=== PATIENT | male | born 1955 | race Caucasian/White ===

== ENCOUNTER → 2016-03-15 | Outpatient (CLI) | payer OTHER ==
[~2016-03-15] MED LIST: /PANT40TA; ATEN100T; ATEN50TA2; DILA100C; NICO21DI4
[2016-03-15 11:58] LABS: BASO % 0.7 % (0.0-1.0); EOS % 0.5 % (0.0-3.0); LARGE UNSTAINED CELL # 0.2 K/mm3 (0.0-0.4); LARGE UNSTAINED CELL % 2.1 % (0.0-4.0); LYMPH # 2.2 K/mm3 (1.5-4.5); LYMPH % 28.9 % (24.0-44.0); MEAN CORPUSCULAR HEMOGLOBIN 31.5 pg (27.0-33.0); MEAN CORPUSCULAR HGB CONC 34.3 g/dl (32.0-36.5); MEAN CORPUSCULAR VOLUME 91.8 fl (80.0-96.0); MONO # 0.6 K/mm3 (0.0-0.8); MONO % 7.5 % (0.0-5.0); NEUTROPHILS # 4.6 K/mm3 (1.8-7.7); NEUTROPHILS % 60.3 % (36.0-66.0); PLATELET COUNT, AUTOMATED 178 k/mm3 (150-450); RED CELL DISTRIBUTION WIDTH 13.3 % (11.5-14.5); WHITE BLOOD COUNT 7.6 K/mm3 (4.0-10.0)
[2016-03-15 12:13] LABS: INR 1.03
[2016-03-15 12:35] LABS: ALBUMIN 4.1 GM/DL (3.2-5.2); ALBUMIN/GLOBULIN RATIO 1.14 (1.00-1.93); ALKALINE PHOSPHATASE 87 U/L (45-117); ALT/SGPT 24 U/L (12-78); ANION GAP 8 MEQ/L (8-16); AST/SGOT 19 U/L (15-37); BILIRUBIN,TOTAL 0.3 MG/DL (0.2-1.0); BLOOD UREA NITROGEN 15 MG/DL (7-18); CALCIUM LEVEL 9.4 MG/DL (8.5-10.1); CARBON DIOXIDE LEVEL 29 MEQ/L (21-32); CHLORIDE LEVEL 103 MEQ/L (98-107); CREATININE FOR GFR 0.81 MG/DL (0.70-1.30); FREE T4 1.06 NG/DL (0.76-1.46); GLOMERULAR FILTRATION RATE > 60.0 (>56); GLUCOSE, FASTING 96 MG/DL (70-105); POTASSIUM SERUM 4.3 MEQ/L (3.5-5.1); SODIUM LEVEL 140 MEQ/L (136-145); TOTAL PROTEIN 7.7 GM/DL (6.4-8.2)
[2016-03-17 00:06] LABS: HEPATITIS C QUANTITATION HCV Not Detected IU/mL (.)
== END | disposition home or self-care (01) ==
LOC: M RAD 09:46
PROVIDERS: ATTEND Internal Medicine Infectious Disease
DX: B18.2 Chronic viral hepatitis C (principal); K70.30 Alcoholic cirrhosis of liver without ascites; R63.4 Abnormal weight loss

== ENCOUNTER → 2016-03-29 | Outpatient (CLI) | payer OTHER ==
[~2016-03-29] MED LIST changes: +GASTROGRAFIN SOLUTION 30ML (Q9963) As Ordered ONE; +ISOVUE-370 76% 100ML VIAL (Q9967) As Ordered ONE
--- NOTE | 2016-03-29 13:51 | REP ---
CT ABDOMEN AND PELVIS: Initially performed without iv contrast, subsequently following IV and oral contrast and then with 3 minute delayed imaging of the abdomen. TECHNIQUE: After drinking two cups of oral contrast each containing 10 mL Gastrografin in 290 mL water, CT of the abdomen was performed. Subsequently following IV contrast administration with 100 mL Isovue 370 mg/mL, 3 mm spiral axial sections obtained through the abdomen and pelvis in the portal venous phase. 3 mm delayed images were subsequently performed through the abdomen. FINDINGS: The lung bases are clear bilaterally. There is minimal diffuse fatty infiltration of the liver yet no focal lesion. The liver and spleen are of normal size. The pancreas and gallbladder are normal. The right adrenal is thickened with density 55 Hounsfield units, therefore, indeterminate. The left adrenal is thickened with low density on unenhanced CT portion of the study consistent with adenoma. The stomach is normal. The small bowel appears without obstruction. There is some low density small bowel loops containing fluid and/or ingested material within the central abdomen, which later filled in with small amount of contrast. There is no small bowel obstruction. The appendix is without inflammation. Atherosclerotic changes are noted in the tortuous abdominal aorta which is without aneurysm. There are moderate atherosclerotic changes in the iliac vessels as well. The bladder is normal. The prostate is mild to moderately enlarged with extrinsic impression upon the inferior bladder. Segmental area of mural thickening seen within the proximal to mid sigmoid compatible with nonspecific colitis. There is no free air or ascites. IMPRESSION: 1. Long segment of moderate mural thickening involving proximal to mid sigmoid compatible with colitis. Clinical followup is recommended. 2. Mild to moderate prostatic hypertrophy with extrinsic impression upon the inferior bladder. 3. Mild diffuse fatty infiltration of the liver. 4. No evidence of ascites or portal venous collaterals. Unreviewed MTDD
== END | disposition home or self-care (01) ==
LOC: M RAD 09:01
PROVIDERS: ATTEND Internal Medicine Infectious Disease
DX: B18.2 Chronic viral hepatitis C (principal); K76.0 Fatty (change of) liver, not elsewhere classified; N40.0 Benign prostatic hyperplasia without lower urinary tract symptoms

== ENCOUNTER → 2016-04-11 | Outpatient (CLI) | payer OTHER ==
[~2016-04-11] MED LIST changes: -GASTROGRAFIN SOLUTION 30ML (Q9963) As Ordered ONE; -ISOVUE-370 76% 100ML VIAL (Q9967) As Ordered ONE
--- NOTE | 2016-04-12 02:37 | REP ---
Clinical: COPD . Comparison: 06/28/2015 . Technique: PA and lateral. Findings: The mediastinum and cardiac silhouette are normal. The lung muro are clear/stable and without acute consolidation, effusion, or pneumothorax. The skeletal structures are intact and normal. Impression: 1. No acute cardiopulmonary process. Signed by Vineet Benavidez MD 04/12/2016 02:28 A
== END | disposition home or self-care (01) ==
LOC: M SMT 14:16
PROVIDERS: ATTEND Nurse Practitioner Adult Health
DX: J44.9 Chronic obstructive pulmonary disease, unspecified (principal)

== ENCOUNTER → 2016-04-13 | Outpatient (REF) | payer OTHER | END | disposition home or self-care (01) | LOC: M SFHCPLAZ 10:40 | PROVIDERS: ATTEND Internal Medicine Infectious Disease | DX: N40.0 Benign prostatic hyperplasia without lower urinary tract symptoms (principal) ==

== ENCOUNTER → 2016-04-19 | Outpatient (REF) | payer OTHER ==
[2016-04-19 12:38] LABS: ALBUMIN 3.9 GM/DL (3.2-5.2); ALBUMIN/GLOBULIN RATIO 1.03 (1.00-1.93); ALKALINE PHOSPHATASE 78 U/L (45-117); ALT/SGPT 19 U/L (12-78); AST/SGOT 22 U/L (15-37); BILIRUBIN,DIRECT < 0.1 MG/DL (0.0-0.2); BILIRUBIN,TOTAL 0.3 MG/DL (0.2-1.0); TOTAL PROTEIN 7.7 GM/DL (6.4-8.2)
[2016-04-23 14:17] LABS: HEPATITIS C QUANTITATION HCV Not Detected IU/mL (.)
== END | disposition home or self-care (01) ==
LOC: M SFHCPLAZ 10:17
PROVIDERS: ATTEND Internal Medicine Infectious Disease
DX: B18.2 Chronic viral hepatitis C (principal)

== ENCOUNTER → 2016-05-09 | Outpatient (CLI) | payer OTHER ==
[~2016-05-09] MED LIST changes: +METHACHOLINE KIT (J7674) INH ONE
== END ==
LOC: M CARPUL 14:56
PROVIDERS: ATTEND Nurse Practitioner Adult Health
DX: J44.9 Chronic obstructive pulmonary disease, unspecified (principal)

== ENCOUNTER → 2016-05-17 | Outpatient (CLI) | payer OTHER ==
[~2016-05-17] MED LIST changes: -METHACHOLINE KIT (J7674) INH ONE
--- NOTE | 2016-05-17 13:14 | REP ---
LEFT HIP, 2 VIEWS: HISTORY: Sciatica. There is no acute fracture or dislocation. The joint space is normal in appearance. IMPRESSION: There is no acute fracture or dislocation. Signed by Flex Serraon MD 05/17/2016 02:09 P
== END ==
LOC: M SMT 11:54
PROVIDERS: ATTEND Nurse Practitioner Adult Health
DX: M54.32 Sciatica, left side (principal)

== ENCOUNTER → 2016-09-10 | Outpatient (CLI) | payer OTHER ==
[2016-09-10 15:16] LABS: BLOOD UREA NITROGEN 16 MG/DL (7-18); CREATININE FOR GFR 0.81 MG/DL (0.70-1.30); GLOMERULAR FILTRATION RATE > 60.0 (>49)
== END ==
LOC: M LAB 13:58
PROVIDERS: ATTEND Surgery
DX: I70.223 Atherosclerosis of native arteries of extremities with rest pain, bilateral legs (principal)

== ENCOUNTER → 2016-09-18 | Outpatient (CLI) | payer OTHER ==
[~2016-09-18] MED LIST changes: +ISOVUE-370 76% 100ML VIAL (Q9967) As Ordered ONE
--- NOTE | 2016-09-21 09:23 | REP ---
Clinical: Atherosclerotic disease. Technique: Axial contrast enhanced images from the lung bases through the lower extremities using 100 ml Isovue 370 intravenous contrast material with imaging in the arterial phase of enhancement. Coronal and sagittal re-formations obtained along with MIP and MPR imaging of the bilateral lower extremities. Findings: Moderate atherosclerotic changes of of the aorta and branch vessels noted to the level of the bifurcation where more advanced atherosclerotic changes are then appreciated involving the bilateral common iliac arteries to include the bilateral internal and external iliac arteries. Normal appearance to the bilateral common femoral arteries is then appreciated reverting to mild/moderate atherosclerotic changes through the bilateral femoral arteries including focally dense circumferential calcifications involving the left distal femoral artery through mid popliteal artery without complete occlusion. Moderate atherosclerotic changes are then appreciated beyond the bilateral popliteal arteries with satisfactory arterial enhancement to the distal lower extremities demonstrating three-vessel runoff to the left proximal ankle and two-vessel runoff beyond the level of the right popliteal artery. Lung bases are clear. Visualized heart and pericardium are normal. Liver, spleen, pancreas, gallbladder, bilateral adrenal glands and kidneys are normal in the arterial phase of enhancement. The enteric system is without obstruction or acute inflammatory process and a normal terminal ileum/appendix are identified in the right lower quadrant. Pelvis demonstrates mass effect on the base of the bladder secondary to enlarged prostate gland measuring four point 5 cm maximal AP diameter. Moderately prominent lymph nodes are identified at the bilateral inguinal canals along with suspected granulation tissue extending from the common femoral arteries through the subcutaneous tissues suggesting prior vascular surgery. No ascites. No free air. No intraperitoneal or retroperitoneal adenopathy. Musculoskeletal structures demonstrate chronic scoliosis and age-related degenerative changes through the visualized thoracolumbar spine. Impression: 1. Overall moderate atherosclerotic changes throughout the abdominal aorta and arterial vasculature culminating in two-vessel runoff to the right ankle and three-vessel runoff to the left ankle. 2. No significant acute abdominopelvic pathology otherwise appreciated. Signed by Vineet Benavidez MD 09/21/2016 09:15 A
== END ==
LOC: M RAD 08:30
PROVIDERS: ATTEND Surgery
DX: I70.233 Atherosclerosis of native arteries of right leg with ulceration of ankle (principal); I70.0 Atherosclerosis of aorta

== ENCOUNTER → 2016-11-14 | Outpatient (REF) | payer OTHER ==
[~2016-11-14] MED LIST changes: -ISOVUE-370 76% 100ML VIAL (Q9967) As Ordered ONE
[2016-11-14 12:51] LABS: ALBUMIN 3.8 GM/DL (3.2-5.2); ALBUMIN/GLOBULIN RATIO 1.03 (1.00-1.93); ALKALINE PHOSPHATASE 100 U/L (45-117); ALT/SGPT 17 U/L (12-78); ANION GAP 4 MEQ/L (8-16); AST/SGOT 16 U/L (15-37); BILIRUBIN,TOTAL 0.3 MG/DL (0.2-1.0); BLOOD UREA NITROGEN 18 MG/DL (7-18); CALCIUM LEVEL 9.5 MG/DL (8.8-10.2); CARBON DIOXIDE LEVEL 32 MEQ/L (21-32); CHLORIDE LEVEL 105 MEQ/L (98-107); CHOLESTEROL LEVEL 156 MG/DL (<200); CREATININE FOR GFR 0.73 MG/DL (0.70-1.30); GLOMERULAR FILTRATION RATE > 60.0 (>49); GLUCOSE, FASTING 105 MG/DL (80-110); POTASSIUM SERUM 4.6 MEQ/L (3.5-5.1); SODIUM LEVEL 141 MEQ/L (136-145); TOTAL PROTEIN 7.5 GM/DL (6.4-8.2); TRIGLYCERIDES LEVEL 125 MG/DL (<150)
[2016-11-14 12:59] LABS: MEAN CORPUSCULAR HEMOGLOBIN 32.3 pg (27.0-33.0); MEAN CORPUSCULAR VOLUME 89.9 fl (80.0-96.0); RED CELL DISTRIBUTION WIDTH 13.3 % (11.5-14.5)
== END ==
LOC: M SFHCPLAZ 09:00
PROVIDERS: ATTEND Nurse Practitioner Adult Health
DX: B18.2 Chronic viral hepatitis C (principal)

== ENCOUNTER → 2017-02-25 | Outpatient (REF) | payer OTHER ==
[2017-02-25 11:51] LABS: MEAN CORPUSCULAR HEMOGLOBIN 30.1 pg (27.0-33.0); MEAN CORPUSCULAR VOLUME 88.3 fl (80.0-96.0); PLATELET COUNT, AUTOMATED 164 10^3/uL (150-450); RED CELL DISTRIBUTION WIDTH 13.2 % (11.5-14.5); WHITE BLOOD COUNT 9.8 10^3/uL (4.0-10.0)
[2017-02-25 12:53] LABS: ALBUMIN 3.8 GM/DL (3.2-5.2); ALBUMIN/GLOBULIN RATIO 0.97 (1.00-1.93); ALKALINE PHOSPHATASE 92 U/L (45-117); ALT/SGPT 14 U/L (12-78); ANION GAP 6 MEQ/L (8-16); AST/SGOT 20 U/L (7-37); BILIRUBIN,DIRECT < 0.1 MG/DL (0.0-0.2); BILIRUBIN,TOTAL 0.3 MG/DL (0.2-1.0); BLOOD UREA NITROGEN 18 MG/DL (7-18); CALCIUM LEVEL 9.4 MG/DL (8.8-10.2); CARBON DIOXIDE LEVEL 29 MEQ/L (21-32); CHLORIDE LEVEL 105 MEQ/L (98-107); CHOLESTEROL LEVEL 179 MG/DL (<200); CREATININE FOR GFR 0.73 MG/DL (0.70-1.30); GLOMERULAR FILTRATION RATE > 60.0 (>49); GLUCOSE, FASTING 97 MG/DL (80-110); POTASSIUM SERUM 4.5 MEQ/L (3.5-5.1); SODIUM LEVEL 140 MEQ/L (136-145); TOTAL PROTEIN 7.7 GM/DL (6.4-8.2); TRIGLYCERIDES LEVEL 170 MG/DL (<150)
[2017-02-27 10:13] LABS: HEPATITIS C QUANTITATION HCV Not Detected IU/mL (.)
== END ==
LOC: M SFHCPLAZ 08:57
PROVIDERS: ATTEND Nurse Practitioner Adult Health
DX: K70.30 Alcoholic cirrhosis of liver without ascites (principal); B18.2 Chronic viral hepatitis C; I70.209 Unspecified atherosclerosis of native arteries of extremities, unspecified extremity; Z00.00 Encounter for general adult medical examination without abnormal findings

== ENCOUNTER → 2017-08-12 | Outpatient (REF) | payer MEDICARE, MEDICAID ==
[2017-08-12 16:31] LABS: HEMOGLOBIN 15.7 g/dl (13.5-17.5); MEAN CORPUSCULAR HEMOGLOBIN 30.2 pg (27.0-33.0); MEAN CORPUSCULAR HGB CONC 34.9 g/dl (32.0-36.5); MEAN CORPUSCULAR VOLUME 86.5 fl (80.0-96.0); PLATELET COUNT, AUTOMATED 182 10^3/uL (150-450); RED CELL DISTRIBUTION WIDTH 13.2 % (11.5-14.5); WHITE BLOOD COUNT 6.6 10^3/uL (4.0-10.0)
== END ==
LOC: M SFHCPLAZ 14:00
DX: K64.9 Unspecified hemorrhoids (principal)
CPT/HCPCS: 85027

== ENCOUNTER → 2017-10-15 | Outpatient (REF) | payer MEDICARE, MEDICAID ==
[2017-10-15 12:41] LABS: ALBUMIN 3.7 GM/DL (3.2-5.2); ALKALINE PHOSPHATASE 90 U/L (45-117); ALT/SGPT 18 U/L (12-78); ANION GAP 7 MEQ/L (8-16); AST/SGOT 18 U/L (7-37); BILIRUBIN,TOTAL 0.3 MG/DL (0.2-1.0); BLOOD UREA NITROGEN 14 MG/DL (7-18); CALCIUM LEVEL 9.1 MG/DL (8.8-10.2); CARBON DIOXIDE LEVEL 29 MEQ/L (21-32); CHLORIDE LEVEL 103 MEQ/L (98-107); CHOLESTEROL LEVEL 168 MG/DL (<200); CHOLESTEROL RISK RATIO 4.097 (<5); CREATININE FOR GFR 0.67 MG/DL (0.70-1.30); GLOMERULAR FILTRATION RATE > 60.0 (>49); GLUCOSE, FASTING 97 MG/DL (70-100); HDL CHOLESTEROL 41 MG/DL (>40); LDL CHOLESTEROL 102.4 MG/DL (<100); NON-HDL-C 127 MG/DL; POTASSIUM SERUM 4.6 MEQ/L (3.5-5.1); SODIUM LEVEL 139 MEQ/L (136-145); TOTAL PROTEIN 7.8 GM/DL (6.4-8.2); TRIGLYCERIDES LEVEL 123 MG/DL (<150)
[2017-10-15 12:46] LABS: ALPHA FETOPROTEIN TUMOR QUANT 1.3 NG/ML (<8.1)
== END ==
LOC: M SFHCPLAZ 11:10
DX: I70.209 Unspecified atherosclerosis of native arteries of extremities, unspecified extremity (principal); E78.2 Mixed hyperlipidemia; K70.30 Alcoholic cirrhosis of liver without ascites; F17.210 Nicotine dependence, cigarettes, uncomplicated
CPT/HCPCS: 80053

== ENCOUNTER → 2017-12-25 | Outpatient (CLI) | payer MEDICARE, MEDICAID | LOC: M RAD 12:15 | DX: K40.90 Unilateral inguinal hernia, without obstruction or gangrene, not specified as recurrent (principal) | CPT/HCPCS: 76857 ==

== ENCOUNTER 2018-02-14 05:20 | Emergency (ER) | payer MEDICARE, MEDICAID ==
[2018-02-14] MEDS: MORPHINE 10 MG/ML 1ML VIAL (J2270) IM (06:33)
[2018-02-14 07:27] LABS: APPEARANCE, URINE CLEAR (CLEAR); BACTERIA, URINE AUTO NEGATIVE (NEGATIVE); BILIRUBIN, URINE AUTO NEGATIVE (NEGATIVE); BLOOD, URINE BLOOD NEGATIVE (NEGATIVE); COLOR, URINE YELLOW (YELLOW); GLUCOSE, URINE (UA) AUTO NEGATIVE (NEGATIVE); KETONE, URINE AUTO 1+ mg/dL (NEGATIVE); LEUKOCYTE ESTERASE, URINE AUTO NEGATIVE (NEGATIVE); MUCUS, URINE SMALL (NEGATIVE); NITRITE, URINE AUTO NEGATIVE (NEGATIVE); PROTEIN, URINE AUTO NEGATIVE (NEGATIVE); RBC, URINE AUTO 2 /HPF (0-3); SPECIFIC GRAVITY URINE AUTO 1.023 (1.002-1.035); SQUAMOUS EPITHELIAL CELL UR AU 0 /HPF (0-6); WBC, URINE AUTO 1 /HPF (0-3)
[2018-02-14] MEDS: PERCOCET 5MG/325MG TAB PO (07:39)
== END 2018-02-14 08:46 | disposition home or self-care (01) ==
LOC: M ED 05:20
DX: S22.31XA Fracture of one rib, right side, initial encounter for closed fracture (principal); Y92.009 Unspecified place in unspecified non-institutional (private) residence as the place of occurrence of the external cause; W10.8XXA Fall (on) (from) other stairs and steps, initial encounter; F17.210 Nicotine dependence, cigarettes, uncomplicated
CPT/HCPCS: J2270

== ENCOUNTER 2018-02-16 13:49 | Emergency (ER) | payer MEDICARE, MEDICAID ==
[2018-02-16] MEDS ORDERED: HYDROMORPHONE HCL 0.5 MG/ 0.5 ML SYRINGE (J1170 PER 1) IM (15:45)
[2018-02-16] MEDS: HYDROMORPHONE HCL 0.5 MG/ 0.5 ML SYRINGE (J1170 PER 1) IV ×2 (16:01→16:47)
== END 2018-02-16 17:48 | disposition home or self-care (01) ==
LOC: M ED 13:49
DX: I73.9 Peripheral vascular disease, unspecified (principal); S22.41XA Multiple fractures of ribs, right side, initial encounter for closed fracture; X58.XXXA Exposure to other specified factors, initial encounter; Y92.89 Other specified places as the place of occurrence of the external cause; Z88.0 Allergy status to penicillin; F17.210 Nicotine dependence, cigarettes, uncomplicated
CPT/HCPCS: J1170

== ENCOUNTER → 2018-04-15 | Outpatient (CLI) | payer MEDICARE, MEDICAID ==
[~2018-04-15] MED LIST changes: +ADV250INH; +ALPR1TAB3; +BENZ200C70 PO; +CLOP75TA2; +COLA100C5 PO; +PERC5TAB12 PO; +VENTAER
--- NOTE | 2018-04-16 08:41 | ECGEPIP ---
Stationary ECG Study [facility] Test Date: 2018-04-15 Pat Name: KAYLA AKHTAR Department: Room: - Gender: M Body Artist: [facility] : 1955 Requested By: LEELEE Vann Order Number: [id number] Reading MD: Eda Blankenship Measurements Intervals [place] Rate: 63 P: 62 [place]: 144 QRS: 74 QRSD: 95 T: 56 QT: 376 QTc: 385 Interpretive Statements SINUS RHYTHM N CHANGE SINCE 06/28/15 Electronically Signed On 04-16-2018 8:41:37 EST by Eda Blankenship
== END ==
LOC: M EKG 16:27
PROVIDERS: ATTEND Anesthesiology
DX: Z01.818 Encounter for other preprocedural examination (principal); Z86.718 Personal history of other venous thrombosis and embolism; J44.9 Chronic obstructive pulmonary disease, unspecified; K21.9 Gastro-esophageal reflux disease without esophagitis; Z95.820 Peripheral vascular angioplasty status with implants and grafts

== ENCOUNTER 2018-04-21 12:48 | Day surgery (SDC) | payer MEDICARE, MEDICAID ==
[~2018-04-21] VITALS: Ht 167.6 cm; Wt 63.5 kg
[~2018-04-21 12:48] MED LIST changes: +LIDOCAINE 1% MDV 20ML VIAL SQ PRN; +LR 1,000 ML IV ONE; +LevoFLOXacin IV 500 MG in APPROPRIATE DILUENT 1 EA IV ONE
[2018-04-21] MEDS ORDERED: LIDOCAINE 1% SDV INJ 30 ML VIAL As Ordered ONE (15:10)
[2018-04-21] MEDS ORDERED: BUPIVACAINE HCL 0.25% 30 ML VIAL As Ordered ONE (15:10)
[2018-04-21] MEDS ORDERED: PROPOFOL 200 MG/20 ML VIAL As Ordered ONE (16:15)
[2018-04-21] MEDS ORDERED: fentaNYL 250 MCG/5 ML INJECTION (J3010) As Ordered ONE (16:15)
[2018-04-21] MEDS ORDERED: ROCURONIUM BROMIDE 50 MG/5 ML VIAL As Ordered ONE ×2 (16:15→16:24)
[2018-04-21] MEDS ORDERED: LIDOCAINE 2% INJ 100 MG/5 ML SDV (FOR ANES.) As Ordered ONE (16:15)
[2018-04-21] MEDS ORDERED: MIDAZOLAM INJ 2 MG/2 ML VIAL (J2250) As Ordered ONE (16:15)
[2018-04-21] MEDS ORDERED: NEOSTIGMINE 10 MG/10 ML VIAL (J2710) As Ordered ONE (16:16)
[2018-04-21] MEDS ORDERED: ONDANSETRON 4MG/2ML VIAL (J2405) As Ordered ONE (16:16)
[2018-04-21] MEDS ORDERED: dexameTHASONE 4 MG/ML 1ML VIAL (J1100) As Ordered ONE (16:16)
[2018-04-21] MEDS ORDERED: GLYCOPYRROLATE INJ 0.2 MG/ML 2 ML VIAL As Ordered ONE (16:16)
[2018-04-21] MEDS ORDERED: METOCLOPRAMIDE INJ 10MG/2ML VIAL (J2765) As Ordered ONE (16:16)
[2018-04-21] MEDS ORDERED: DESFLURANE 240 ML INHALANT As Ordered ONE (17:38)
[2018-04-21] MEDS ORDERED: fentaNYL 100 MCG/2 ML INJECTION (J3010) As Ordered ONE (17:52)
[2018-04-21] MEDS: HYDROMORPHONE HCL 0.5 MG/ 0.5 ML SYRINGE (J1170 PER 1) IV PRN ×2 (18:00→18:15)
[2018-04-21] MEDS ORDERED: HYDROMORPHONE HCL 0.5 MG/ 0.5 ML SYRINGE (J1170 PER 1) As Ordered ONE (18:02)
[2018-04-21] MEDS ORDERED: fentaNYL 100 MCG/2 ML INJECTION (J3010) IV PRN (18:15)
[2018-04-21] MEDS ORDERED: HYDROMORPHONE HCL 0.5 MG/ 0.5 ML SYRINGE (J1170 PER 1) IV PRN (18:15)
[2018-04-21] MEDS ORDERED: LR 1,000 ML IV SCH (18:15)
[2018-04-21] MEDS ORDERED: ONDANSETRON 4MG/2ML VIAL (J2405) IV PRN ×2 (18:15→18:30)
[2018-04-21] MEDS ORDERED: KETOROLAC 30 MG/ML VIAL (J1885) As Ordered ONE (18:26)
[2018-04-21] MEDS ORDERED: NORCO, ANEXSIA 5/325MG TABLET (HYDROcodone/ACETAMINOPHEN) PO PRN ×2 (18:30)
[2018-04-21] MEDS ORDERED: KETOROLAC 30 MG/ML VIAL (J1885) IV PRN (18:30)
[2018-04-21 19:20] VITALS: BP 154/90
--- NOTE | 2018-04-22 04:22 | ROOPDOC ---
[facility] Report Of Operation Report of Operation DATE OF PROCEDURE: 04/22/18 PREPROCEDURE DIAGNOSES: Bilateral inguinal hernia. POSTPROCEDURE DIAGNOSES: Bilateral indirect inguinal hernia. PROCEDURE: Robotic-assisted laparoscopic repair of bilateral inguinal hernia with mesh ((STANLEY). SURGEON: Sánchez Martinez MD DUST MIXER: Colleen Lundberg DO (PGY-1) ANESTHESIA: General anesthesia. ESTIMATED BLOOD LOSS: Approximately 10 mL. COMPLICATIONS: None. REMARKS: Small defects on both left and right inguinal hernia. Significant scarring from previous vascular groin surgeries in both sides, most prominent over the left side. Small cord lipoma removed in the left side. Slightly larger but relatively small cord lipoma removed from the right side.. . DESCRIPTION OF PROCEDURE: Patient received 500 mg of Levaquin IV preoperatively for wound prophylaxis. Patient was brought to the operating room, placed supine on the operating table. Compression boots placed in both lower extremities for DVT prophylaxis. After adequate general anesthesia started, he was placed on a lithotomy position. A silva catheter placed to decompress his urinary bladder without difficulty. His abdomen and groin/pelvic area then prepped and draped in the usual sterile fashion. We performed a surgical timeout using relevant patient identifier, procedure information prior to start of our surgery. Entry to the abdomen done through a small incision above the umbilical skin cleft. A Veress needle is inserted intrabdominally in a controlled fashion. CO2 insufflation started to pressure 15 mmHg. Using the same incision a 5 mm Visiport was then placed under direct vision of laparoscope. The insertion site was inspected for injury and none was found. Patient was then positioned on a Trendelenburg position with the symptomatic (left) side tilted upwards for adequate view of the hernia defect. Two working ports are placed to the laterally on the abdominal wall to the right and left of the umbilicus . The da Estrella robot to our is then positioned in between the patient's legs and the trochars docked onto the robot. I then unscrubbed and took control of the camera and the laparoscopic instruments at the surgeon's console. A Cadiere forceps with bipolar cautery on arm 2 and A fredrick-cut laparoscopic scissor with unipolar cautery in arm 1 was used. Operative Findings: The presence of bilateral inguinal hernia on both sides were confirmed. The opening were both small with no visible intraabdominal organs protruding through the defect. The left side defect appears more promient. A portion of the sigmoid colon is partially adhered to the lower part of the hernia opening but not through it. This was easily lysed away from the working area with the scissors. The peritoneum was opened up about 3 cm above the superior edge of the peritoneal defect of the inguinal hernia starting at the medial umbilical ligament going in an arc-like fashion laterally towards the level of the anterior superior iliac spine. This was then dissected mostly bluntly away from the abdominal wall. He has had previous vascular surgeries on both groin area via bilateral groin incsions and there is scarring of the tissues consistent with this. On approaching the inguinal hernia defect the hernia sac was pulled back into the preperitoneal space and carefully dissected off the testicular vessels and vas deferens. The hernia sac extends inside the inguinal canal and reduced back into the abdomen.. Both these structures were promptly identified and from the hernia sac. A small cord lipoma was found and dissected free from the rest of the structures. After freeing up the hernia sac we sana nued dissecting it off inferiorly to from the vas deferens and testicular vessels. The preperitoneal space was dissected medially to expose the pubic tubercle up towards the symphysis pubis. The remaining areolar fibers were bluntly dissected away from the abdominal wall to create space for the mesh. After fully dissecting the preperitoneal space, we checked for adequate hemostasis. I chose a medium sized (10x 6 cm) 3D-Max light weighted polypropylene mesh. This was folded with the center of the mesh marked for positioning. This was then delivered intra-abdominally through one of the trochars. This was positioned into the preperitoneal space with the medial side towards the pubic tubercle. The mesh was then carefully infolded and positioned in place with adequate overlap around the internal ring to cover the hernia defect. The mesh has adequate coverage for the direct hernia spaces as well. This was then secured to the pubic tubercle and abdominal wall muscle medial to the inferior epigastric artery using a 2-0 vicryl suture. After careful placement of the mesh, the peritoneal opening was then closed with a running suture of 2-0V LOC suture. The hernia sac is incorporated the hernia sac into the closure of the peritoneum. In a similar fashion I worked on the other side (right). The peritoneum was again opened up and the preperitoneal space developed freeing up the testicular vessels and vas deferens from the hernia sac/peritoneum. I explored the inguinal canal through the internal opening and I pulled out some bulky preperitoneal adipose tissue (cord lipoma). A medium sized 3D max light weighted polypropylene mesh was again used to cover the hernia spaces. I again secured this with a 2-0 vicryl suture placed at the pubic tubercle and rectus muscle (medial to the Inferior Epigastrics). The peritoneal opening was again closed with a running suture of 2-0 VLOC. The remnants of the sutures and preperitoneal fat tissue that was dissected free were retrieved. I then surveyed the abdomen and pelvis for any signs of injury. Once satisfied I scrubbed back in. The instruments were removed. The abdomen was deflated. All ports were removed. The skin incisions were closed with 4-0 Monocryl in subcuticular fashion. The incisions were covered with Dermabond. The port sites and distribution of the ilioinguinal nerve were again infiltrated with local anesthesia. An ilioinguinal nerve block was also performed. Patient was promptly awakened, extubated and brought to the recovery room stable Count of sponges and instruments were verified correct. SÁNCHEZ MARTINEZ MD Apr 22, 2018 04:22
--- NOTE | 2018-04-22 04:48 | POST-OPPD ---
Postoperative Procedure Note Date Of Procedure: Apr 21, 2018 PREOPERATIVE DIAGNOSIS: bilateral inguinal hernia POSTOPERATIVE DIAGNOSIS: bilateral inguinal hernia FINDINGS: small peritoneal defects bilaterally consistent with indirect inguinal hernias PROCEDURE: Robotic Assisted Bilateral Inguinal Hernia Repair with mesh (STANLEY) SURGEON: Sánchez Martinez MD EMERGENCY SERVICES PROFESSIONAL: Colleen Lundberg DO (PGY-1) ANESTHESIA: General Anesthesia SPECIMENS: none ESTIMATED BLOOD LOSS: 10 mLs COMPLICATIONS: none, patient extubated to PACU stable POSTOPERATIVE CONDITION: stable SÁNCHEZ MARTINEZ MD Apr 21, 2018 15:37
== END 2018-04-21 19:50 | disposition home or self-care (01) ==
LOC: M SDC 12:48
PROVIDERS: ATTEND Surgery
DX: K40.20 Bilateral inguinal hernia, without obstruction or gangrene, not specified as recurrent (principal); K21.9 Gastro-esophageal reflux disease without esophagitis; F41.9 Anxiety disorder, unspecified; J44.9 Chronic obstructive pulmonary disease, unspecified; F17.210 Nicotine dependence, cigarettes, uncomplicated; Z79.51 Long term (current) use of inhaled steroids; Z79.02 Long term (current) use of antithrombotics/antiplatelets; Z79.899 Other long term (current) drug therapy; Z88.0 Allergy status to penicillin
CPT/HCPCS: 49650; C1781; J1100; J1170; J1885; J1956; J2250; J2405; J2710; J2765; J3010

== ENCOUNTER → 2018-05-01 | Outpatient (CLI) | payer MEDICARE, MEDICAID ==
[~2018-05-01] MED LIST changes: +GASTROGRAFIN SOLUTION 30ML (Q9963) As Ordered ONE; +ISOVUE-370 76% 100ML VIAL (Q9967) As Ordered ONE; -LIDOCAINE 1% MDV 20ML VIAL SQ PRN; -LR 1,000 ML IV ONE; -LevoFLOXacin IV 500 MG in APPROPRIATE DILUENT 1 EA IV ONE
--- NOTE | 2018-05-01 14:10 | REP ---
CT of the abdomen and pelvis with IV and bowel contrast: Comparison is 09/18/2016. The patient complains of left lower quadrant pain. The visualized lung bases are unremarkable. The hepatic parenchyma, gallbladder, pancreas and spleen are normal size and unremarkable. The adrenals are unremarkable. There are no renal or ureteral calculi. There is no hydronephrosis. There is a small left renal simple cyst posteriorly. The abdominal aorta is unremarkable. No periaortic adenopathy or mass. There is no bowel distension or obstruction. There is moderate gaseous distension of the sigmoid colon. This measures up to 4.3 cm in diameter. There is no diverticulosis or diverticulitis. There is no ascites or adenopathy. Pelvis: There is no ascites or adenopathy. The pelvic bowel loops are unremarkable. The bladder is markedly distended but otherwise unremarkable. The prostate is enlarged and effaces the bladder base. There appears to be a scar in the skin and subcutaneous tissues in the left inguinal area. This is unchanged and may be from previous hernia surgery. Impression: Essentially negative CT study of the abdomen and pelvis. The prostate is enlarged. The bladder is markedly distended. Suspect there is a surgical scar in the left inguinal area, unchanged. Electronically Signed by Marco Holguin MD 05/01/2018 02:02 P
== END ==
LOC: M RAD 11:27
PROVIDERS: ATTEND Nurse Practitioner Adult Health
DX: R10.32 Left lower quadrant pain (principal)
CPT/HCPCS: 74177; Q9963; Q9967

== ENCOUNTER → 2019-01-21 | Outpatient (REF) | payer MEDICARE ==
[~2019-01-21] MED LIST changes: -/PANT40TA; -ADV250INH; +ADV250INH INH; -ALPR1TAB3; +ALPR1TAB3 PO; -GASTROGRAFIN SOLUTION 30ML (Q9963) As Ordered ONE; -ISOVUE-370 76% 100ML VIAL (Q9967) As Ordered ONE; +OMEP40CA97 PO; +PROT1TAB2; -VENTAER; +VENTAER INH
[2019-01-21 16:10] LABS: BASO # 0.1 10^3/uL (0.0-0.2); BASO % 0.7 % (0.0-1.0); EOS # 0.1 10^3/uL (0.0-0.5); EOS % 1.5 % (0.0-3.0); HEMOGLOBIN 16.3 g/dl (13.5-17.5); LYMPH # 1.6 10^3/uL (1.5-5.0); MEAN CORPUSCULAR HEMOGLOBIN 30.3 pg (27.0-33.0); MEAN CORPUSCULAR HGB CONC 33.3 g/dl (32.0-36.5); MEAN CORPUSCULAR VOLUME 91.1 fl (80.0-96.0); MONO # 0.4 10^3/uL (0.0-0.8); MONO % 5.1 % (0.0-5.0); NEUTROPHILS # 5.2 10^3/uL (1.5-8.5); NEUTROPHILS % 70.4 % (36.0-66.0); PLATELET COUNT, AUTOMATED 170 10^3/uL (150-450); RED BLOOD COUNT 5.38 10^6/uL (4.30-6.10); WHITE BLOOD COUNT 7.4 10^3/uL (4.0-10.0)
[2019-01-21 16:20] LABS: ALBUMIN 4.1 GM/DL (3.2-5.2); ALT/SGPT 19 U/L (12-78); BILIRUBIN,TOTAL 0.4 MG/DL (0.2-1.0); BLOOD UREA NITROGEN 15 MG/DL (7-18); CALCIUM LEVEL 9.8 MG/DL (8.8-10.2); CARBON DIOXIDE LEVEL 29 MEQ/L (21-32); CHLORIDE LEVEL 104 MEQ/L (98-107); CHOLESTEROL LEVEL 169 MG/DL (<200); CHOLESTEROL RISK RATIO 4.121 (<5); CREATININE FOR GFR 0.78 MG/DL (0.70-1.30); GLOMERULAR FILTRATION RATE > 60.0 (>49); GLUCOSE, FASTING 90 MG/DL (70-100); HDL CHOLESTEROL 41 MG/DL (>40); LDL CHOLESTEROL 112 MG/DL (<100); NON-HDL-C 128 MG/DL; POTASSIUM SERUM 4.4 MEQ/L (3.5-5.1); SODIUM LEVEL 140 MEQ/L (136-145); TRIGLYCERIDES LEVEL 81 MG/DL (<150)
== END ==
LOC: M SFHCPLAZ 14:00
PROVIDERS: ATTEND Nurse Practitioner Adult Health
DX: K70.30 Alcoholic cirrhosis of liver without ascites (principal); B18.2 Chronic viral hepatitis C; I70.209 Unspecified atherosclerosis of native arteries of extremities, unspecified extremity; E78.2 Mixed hyperlipidemia; Z23 Encounter for immunization
CPT/HCPCS: 36415; 80053; 80061; 82105; 85025; 90682; G0008; G0463

== ENCOUNTER → 2019-02-16 | Day surgery (SDC) | payer MEDICARE ==
[~2019-02-16] VITALS: Ht 170.2 cm; Wt 63.5 kg
[~2019-02-16] MED LIST changes: +BUPIVACAINE HCL 0.25% 10 ML VIAL As Ordered ONE; +BUPIVACAINE LIPOSOME/PF 1.3% 20ML VIAL (13.3MG/ML)(EXPAREL)(C9290 PER1MG) As Ordered ONE; +KETOROLAC 30 MG/ML VIAL (J1885) IV PRN; +KETOROLAC 60 MG/2 ML VIAL (J1885) As Ordered ONE; +LIDOCAINE 2% INJ 100 MG/5 ML SDV (FOR ANES.) As Ordered ONE; +LR 1,000 ML IV ONE; +LR 1,000 ML IV SCH; +METOCLOPRAMIDE INJ 10MG/2ML VIAL (J2765) IV PRN; +MIDAZOLAM INJ 5 MG/ML VIAL (J2250) As Ordered ONE; +NORCO, ANEXSIA 5/325MG TABLET (HYDROcodone/ACETAMINOPHEN) PO PRN; +ONDANSETRON 4MG/2ML VIAL (J2405) IV PRN; +PERCOCET 5MG/325MG TAB As Ordered ONE; +PROPOFOL 200 MG/20 ML VIAL As Ordered ONE; +diphenhydrAMINE INJ 50MG/ML VIAL (J1200) As Ordered ONE; +fentaNYL 100 MCG/2 ML INJECTION (J3010) IV PRN; +metroNIDAZOLE 500 MG in IV 1 EA IV ONE
[2019-02-16] MEDS: PERCOCET 5MG/325MG TAB PO PRN ×2 (15:15→15:53)
[2019-02-16 17:30] VITALS: BP 156/79
--- NOTE | 2019-02-17 10:26 | ROOPDOC ---
[facility] Report Of Operation Report of Operation DATE OF PROCEDURE: 02/16/19 PREPROCEDURE DIAGNOSES: bleeding, prolapsing hemorrhoids, enlarged external hemorrhoids, recurrent acute anal fissure POSTPROCEDURE DIAGNOSES: same. PROCEDURE: Exam under anesthesia, excisional hemorrhoidectomy (2 pillars), left lateral internal sphincterotomy (partial). SURGEON: Sánchez Martinez MD BLOCK PLACER: ANESTHESIA: General Anesthesia. ESTIMATED BLOOD LOSS: Approximately 20 mL. COMPLICATIONS: none. REMARKS: 63 M with prolonged history of prolapsing and intermittent bleeding from his hemorrhoids, intermittent swelling from the external hemorrhoids with constipation resulting in discomfort, difficulty in hygiene as well as previous recurrent acute posterior midline anal fissures treated conservatively in the past. He could not tolerate anoscopy and banding in the office, thus we have decided to bring him to OR for excision of his hemorrhoids and lateral internal sphincterotomy. PROCEDURE NOTE: enlarge mixed hemorrhoids on both lateral quadrants with grade IV prolapse of the right lateral anterolateral quadrants extending to the anterior portion with multilobulated enlarged internal hemorrhoids. minimal enlarged internal hemorrhoids at the right posterolateral quadrant. tight sphincteric tone. DESCRIPTION OF PROCEDURE: Patient was given a dose of Flagyl 500 mg IV prior to bringing him to the operating room. He was brought to the operating room. Spinal anesthesia was induced. He was then placed in the prone jackknife position. The buttocks were taped apart. We paused for a surgical timeout using both pre-incision safety checklist to verify correct patient, procedure site and additional clinical information prior to beginning the procedure The perineum and perianal area was prepped and draped in the standard sterile fashion. He was monitored throughout the procedure. IV sedation was given to the patient. Local anesthetic was injected as a perianal block I used a mixture of Exparel and 1/4% Marcaine. Is enlarged external hemorrhoidal folds on both lateral quadrants. No obvious chronic posterior midline fissure but previously healed fissures are noted. The right internal lateral hemorrhoidal bundle easily prolapses out, and in the lesser extent the left lateral quadrant. The anus was carefully dilated with 2 fingers. A Hill-Womack retractor was inserted into redundant mixed internal and external hemorrhoids were identified over at the left lateral and right anterolateral quadrant. The right posterolateral quadrant was not terribly engorged or enlarged nor prolapsing. Alaina clamps were placed to lift the pedicle of the underlying muscles. Using a focus Harmonic scalpel, the hemorrhoidal bundle was divided. I conservatively preserved the overlying skin and mucosa by taking small bites at the small loculated internal hemorrhoidal bundles at the anterior quadrant separate from this incision and sealing this with the focus Harmonic scalpel. A 2-0 Vicryl suture was placed at the base of each pedicle. An elliptical incision was then made extending from the perianal skin to the hemorrhoidal pedicle base including both the excessive hemorrhoidal skin tags, external and internal hemorrhoids. The anoderm was conservatively opened up to conservative this for closure. Flaps were then developed on both aspects of the incision. The dilated hemorrhoidal venous clumps was dissected with Metzenbaum scissors as well as harmonic focus scalpel from the underlying sphincter muscle. The pedicle was then amputated with the harmonic scalpel. Hemostasis was checked. Following of stasis the mucosal and skin incision was then closed with a running locked suture of 3-0 Vicryl on the mucosal aspect and then converted to subcuticular placement at the level of the perianal skin. The hemorrhoidal bundle over the left anterolateral aspect was likewise excised in the same manner. Some left over venous pedicles was individually dissected and divided using the Harmonic scalpel to conservative the anoderm and mucosa. Before closing a small portion of the internal sphincter was divided with the Harmonic scalpel as part of lateral internal sphincterotomy. This is only partially divided. The most superficial portions removed as patient has been having recurrent anal fissure. At the end of the procedure I liberally injected a mixture of Exparel and % Marcaine at the subcutaneous and perianal area. The vessel denies gauze dressing was placed in between the gluteal folds as well as bulky gauze dressing held in place with postop surgical underwear. Patient was then placed supine on the stretcher, awakened and brought to recovery room stable. SÁNCHEZ MARTINEZ MD Feb 17, 2019 10:26
== END | disposition home or self-care (01) ==
LOC: M SDC 09:02
PROVIDERS: ATTEND Surgery
DX: K64.3 Fourth degree hemorrhoids (principal); K60.1 Chronic anal fissure; I73.9 Peripheral vascular disease, unspecified; K21.9 Gastro-esophageal reflux disease without esophagitis; J44.9 Chronic obstructive pulmonary disease, unspecified; F41.9 Anxiety disorder, unspecified; G62.9 Polyneuropathy, unspecified; L30.9 Dermatitis, unspecified; F17.210 Nicotine dependence, cigarettes, uncomplicated; Z88.0 Allergy status to penicillin; Z79.899 Other long term (current) drug therapy; Z95.828 Presence of other vascular implants and grafts
CPT/HCPCS: 46260; 88304; C9290; J1200; J1885; J2250

== ENCOUNTER 2019-02-28 09:38 | Emergency (ER) | payer MEDICARE ==
[~2019-02-28] VITALS: Ht 170.2 cm; Wt 131.0 kg
[~2019-02-28 09:38] MED LIST changes: -BUPIVACAINE HCL 0.25% 10 ML VIAL As Ordered ONE; -BUPIVACAINE LIPOSOME/PF 1.3% 20ML VIAL (13.3MG/ML)(EXPAREL)(C9290 PER1MG) As Ordered ONE; -KETOROLAC 30 MG/ML VIAL (J1885) IV PRN; -KETOROLAC 60 MG/2 ML VIAL (J1885) As Ordered ONE; -LIDOCAINE 2% INJ 100 MG/5 ML SDV (FOR ANES.) As Ordered ONE; -LR 1,000 ML IV ONE; -LR 1,000 ML IV SCH; -METOCLOPRAMIDE INJ 10MG/2ML VIAL (J2765) IV PRN; -MIDAZOLAM INJ 5 MG/ML VIAL (J2250) As Ordered ONE; -NORCO, ANEXSIA 5/325MG TABLET (HYDROcodone/ACETAMINOPHEN) PO PRN; -ONDANSETRON 4MG/2ML VIAL (J2405) IV PRN; -PERCOCET 5MG/325MG TAB As Ordered ONE; -PROPOFOL 200 MG/20 ML VIAL As Ordered ONE; -diphenhydrAMINE INJ 50MG/ML VIAL (J1200) As Ordered ONE; -fentaNYL 100 MCG/2 ML INJECTION (J3010) IV PRN; -metroNIDAZOLE 500 MG in IV 1 EA IV ONE
[2019-02-28] MEDS ORDERED: STOO1CAP7 (09:45)
[2019-02-28] MEDS ORDERED: OXYC1TAB23 (09:45)
[2019-02-28] MEDS ORDERED: PREPCRE TOP (09:45)
[2019-02-28] MEDS ORDERED: NS 500 ML IV ONE (10:15)
[2019-02-28] MEDS ORDERED: MORPHINE 4 MG/ML 1ML VIAL/SYRINGE (J2270) IV ONE (10:15)
[2019-02-28 10:34] LABS: HEMATOCRIT 39.2 % (42.0-52.0); HEMOGLOBIN 13.5 g/dl (13.5-17.5); MEAN CORPUSCULAR HEMOGLOBIN 30.5 pg (27.0-33.0); MEAN CORPUSCULAR VOLUME 88.7 fl (80.0-96.0); RED BLOOD COUNT 4.42 10^6/uL (4.30-6.10); WHITE BLOOD COUNT 7.5 10^3/uL (4.0-10.0)
[2019-02-28 10:35] LABS: BASO # 0.1 10^3/uL (0.0-0.2); BASO % 0.9 % (0.0-1.0); EOS # 0.2 10^3/uL (0.0-0.5); EOS % 2.3 % (0.0-3.0); LYMPH # 1.7 10^3/uL (1.5-5.0); LYMPH % 23.1 % (24.0-44.0); MEAN CORPUSCULAR HGB CONC 34.4 g/dl (32.0-36.5); MONO # 0.5 10^3/uL (0.0-0.8); MONO % 6.6 % (0.0-5.0); NEUTROPHILS % 66.7 % (36.0-66.0); PLATELET COUNT, AUTOMATED 234 10^3/uL (150-450)
[2019-02-28 10:46] LABS: ALBUMIN 3.7 GM/DL (3.2-5.2); ALT/SGPT 11 U/L (12-78); BILIRUBIN,DIRECT 0.1 MG/DL (0.0-0.2); BILIRUBIN,TOTAL 0.4 MG/DL (0.2-1.0); BLOOD UREA NITROGEN 19 MG/DL (7-18); CALCIUM LEVEL 9.5 MG/DL (8.8-10.2); CARBON DIOXIDE LEVEL 26 MEQ/L (21-32); CHLORIDE LEVEL 103 MEQ/L (98-107); CREATININE FOR GFR 0.95 MG/DL (0.70-1.30); GLOMERULAR FILTRATION RATE > 60.0 (>49); GLUCOSE, FASTING 89 MG/DL (70-100); LIPASE 64 U/L (73-393); POTASSIUM SERUM 4.3 MEQ/L (3.5-5.1); SODIUM LEVEL 138 MEQ/L (136-145); TOTAL PROTEIN 7.7 GM/DL (6.4-8.2)
[2019-02-28] MEDS ORDERED: MORPHINE 4 MG/ML 1ML VIAL/SYRINGE (J2270) IV PRN (11:00)
[2019-02-28] MEDS ORDERED: PERC10TA26 PO (11:38)
[2019-02-28] MEDS ORDERED: COLA100C5 PO (11:38)
[2019-02-28] MEDS ORDERED: oxyCODONE 5MG TAB PO ONE (11:45)
[2019-02-28 11:55] VITALS: BP 105/61
== END 2019-02-28 11:58 | disposition home or self-care (01) ==
LOC: M ED 09:38
DX: G89.18 Other acute postprocedural pain (principal); K21.9 Gastro-esophageal reflux disease without esophagitis; K74.60 Unspecified cirrhosis of liver; R56.9 Unspecified convulsions; Z79.899 Other long term (current) drug therapy; Z88.0 Allergy status to penicillin; F17.210 Nicotine dependence, cigarettes, uncomplicated
CPT/HCPCS: 80048; 80076; 83605; 83690; 85025; 86850; 86900; 86901; 96374; 96376; 99284; J2270

== ENCOUNTER → 2019-05-12 | Outpatient (CLI) | payer MEDICARE ==
[~2019-05-12] MED LIST changes: +OXYC1TAB23; +PERC10TA26 PO; +PREPCRE TOP; +STOO1CAP7
--- NOTE | 2019-05-12 12:57 | REP ---
BILATERAL LOWER EXTREMITY DUPLEX DOPPLER ARTERIAL ULTRASOUND: Real-time ultrasound evaluation and duplex Doppler interrogation of bilateral lower extremity arterial systems is performed. CHAITANYA on both sides is 0.9. On the right there is a stent extending from the proximal superficial femoral artery to the popliteal artery. On the left there is also a stent extending from the proximal superficial femoral artery to the popliteal artery. Severe scattered plaquing is seen bilaterally. There is significantly decreased flow velocity in the right posterior tibial artery with tardus parvus waveforms suggesting stenosis of the proximal right ANALYTICAL CHEMIST. Triphasic waveforms are seen in the right common femoral, profunda, and proximal superficial femoral arteries. Monophasic waveforms are seen in the distal right SFA and distal to that. On the left biphasic waveform is seen in the common femoral artery and triphasic waveforms are seen in the mid to distal superficial femoral artery. Otherwise monophasic waveforms are seen diffusely elsewhere in the left lower extremity arterial system. There is somewhat elevated peak systolic velocity of the left profunda suggesting mild stenosis of that vessel. PEAK SYSTOLIC VELOCITY RIGHT LEFT Common femoral artery 200.9 cm/s 126.8 cm/s Profunda 90.8 229.1 Proximal SFA 97.2 116.5 Superficial femoral artery mid 61.6 82.7 Superficial femoral artery distal 62.0 66.5 Popliteal 76.0 58.3 Proximal anterior tibial artery 79.9 75.2 Tibioperoneal trunk 110.7 69.8 Proximal posterior tibial artery 26.4 40.9 Distal posterior tibial artery 18.5 44.2 Distal anterior tibial artery 72.3 47.5 Electronically Signed by Marco Melo MD 05/12/2019 07:55 P
== END ==
LOC: M RAD 10:09
PROVIDERS: ATTEND Surgery
DX: I73.9 Peripheral vascular disease, unspecified (principal)

== ENCOUNTER → 2019-10-10 | Outpatient (CLI) | payer MEDICARE ==
[~2019-10-10] MED LIST changes: +CVS250CA2; +PHEN26CR TOP; -PREPCRE TOP; -STOO1CAP7
== END ==
LOC: M LABSMTC 08:00
PROVIDERS: ATTEND Family Medicine
DX: Z11.59 Encounter for screening for other viral diseases (principal); Z20.828 Contact with and (suspected) exposure to other viral communicable diseases
CPT/HCPCS: C9803; U0003

== ENCOUNTER → 2019-12-15 | Outpatient (REF) | payer MEDICARE ==
[2019-12-15 15:01] LABS: ALT/SGPT 24 U/L (12-78); BILIRUBIN,TOTAL 0.3 MG/DL (0.2-1.0); BLOOD UREA NITROGEN 22 MG/DL (7-18); CALCIUM LEVEL 9.5 MG/DL (8.8-10.2); CARBON DIOXIDE LEVEL 28 MEQ/L (21-32); CHLORIDE LEVEL 105 MEQ/L (98-107); CHOLESTEROL LEVEL 149 MG/DL (<200); CHOLESTEROL RISK RATIO 2.811 (<5); CREATININE FOR GFR 0.72 MG/DL (0.70-1.30); GLOMERULAR FILTRATION RATE > 60.0 (>49); GLUCOSE, FASTING 100 MG/DL (70-100); HDL CHOLESTEROL 53 MG/DL (>40); LDL CHOLESTEROL 86 MG/DL (<100); NON-HDL-C 96 MG/DL; POTASSIUM SERUM 4.5 MEQ/L (3.5-5.1); SODIUM LEVEL 139 MEQ/L (136-145); TOTAL PROTEIN 7.6 GM/DL (6.4-8.2); TRIGLYCERIDES LEVEL 50 MG/DL (<150)
== END ==
LOC: M SFHCPLAZ 10:45
PROVIDERS: ATTEND Nurse Practitioner Adult Health
DX: I70.209 Unspecified atherosclerosis of native arteries of extremities, unspecified extremity (principal); E78.2 Mixed hyperlipidemia; Z23 Encounter for immunization
CPT/HCPCS: 36415; 80053; 80061; 90682; G0008; G0463

== ENCOUNTER → 2021-07-05 | Outpatient (CLI) | payer OTHER, MEDICARE ==
[~2021-07-05] MED LIST changes: +OMEP40CA4 PO; -OMEP40CA97 PO
== END ==
LOC: M PLAIMG 09:54
PROVIDERS: ATTEND Physician Assistant
DX: J40 Bronchitis, not specified as acute or chronic (principal)

== ENCOUNTER → 2022-06-11 | Outpatient (CLI) | payer MEDICARE, OTHER ==
[2022-06-11 15:52] LABS: HEMATOCRIT 45.5 % (42.0-52.0); HEMOGLOBIN 15.4 g/dl (13.5-17.5); MEAN CORPUSCULAR HEMOGLOBIN 30.8 pg (27.0-33.0); MEAN CORPUSCULAR HGB CONC 33.8 g/dl (32.0-36.5); PLATELET COUNT, AUTOMATED 159 10^3/uL (150-450); WHITE BLOOD COUNT 7.6 10^3/uL (4.0-10.0)
[2022-06-11 19:17] LABS: ALBUMIN 4.2 G/DL (3.2-5.2); ALKALINE PHOSPHATASE 75 U/L (46-116); ALT/SGPT 16 U/L (7.0-40); AST/SGOT 20 U/L (<34); BILIRUBIN,TOTAL 0.3 MG/DL (0.3-1.2); BLOOD UREA NITROGEN 24 MG/DL (9-23); CALCIUM LEVEL 9.9 MG/DL (8.3-10.6); CARBON DIOXIDE LEVEL 28 MMOL/L (20-31); CHLORIDE LEVEL 105 MMOL/L (98-107); CHOLESTEROL LEVEL 187 MG/DL (<200); CHOLESTEROL RISK RATIO 3.78 (<5); CREATININE FOR GFR 0.77 MG/DL (0.70-1.30); GLOMERULAR FILTRATION RATE > 60.0 (>49); GLUCOSE, FASTING 93 MG/DL (74-106); HDL CHOLESTEROL 49.4 MG/DL (>40); LDL CHOLESTEROL 120.4 MG/DL (<100); NON-HDL-C 137.6 MG/DL; POTASSIUM SERUM 4.4 MMOL/L (3.5-5.1); SODIUM LEVEL 138 MMOL/L (136-145); TOTAL PROTEIN 7.4 G/DL (5.7-8.2); TRIGLYCERIDES LEVEL 86 MG/DL (<150)
== END ==
LOC: M PLALAB 14:13
PROVIDERS: ATTEND Nurse Practitioner Adult Health
DX: I73.9 Peripheral vascular disease, unspecified (principal); N40.0 Benign prostatic hyperplasia without lower urinary tract symptoms; E78.2 Mixed hyperlipidemia

== ENCOUNTER → 2023-04-08 | Outpatient (CLI) | payer OTHER ==
[2023-04-08 15:08] LABS: HEMATOCRIT 45.9 % (42.0-52.0); HEMOGLOBIN 15.6 g/dl (13.5-17.5); MEAN CORPUSCULAR HEMOGLOBIN 31.6 pg (27.0-33.0); MEAN CORPUSCULAR VOLUME 92.9 fl (80.0-96.0); PLATELET COUNT, AUTOMATED 161 10^3/uL (150-450); RED BLOOD COUNT 4.94 10^6/uL (4.30-6.10); WHITE BLOOD COUNT 6.5 10^3/uL (4.0-10.0)
[2023-04-08 15:38] LABS: THYROID STIMULATING HORMONE 1.404 uIU/ML (0.55-4.78)
[2023-04-08 15:42] LABS: FREE T4 1.16 NG/DL (0.89-1.76)
[2023-04-08 15:43] LABS: ALKALINE PHOSPHATASE 61 U/L (46-116); ALT/SGPT 21 U/L (7.0-40); AST/SGOT 21 U/L (<34); BILIRUBIN,TOTAL 0.4 MG/DL (0.3-1.2); BLOOD UREA NITROGEN 21 MG/DL (9-23); CALCIUM LEVEL 9.8 MG/DL (8.3-10.6); CARBON DIOXIDE LEVEL 29 MMOL/L (20-31); CHLORIDE LEVEL 108 MMOL/L (98-107); CHOLESTEROL LEVEL 194 MG/DL (<200); CHOLESTEROL RISK RATIO 3.95 (<5); CREATININE FOR GFR 0.69 MG/DL (0.70-1.30); GLOMERULAR FILTRATION RATE > 60.0 (>49); GLUCOSE, FASTING 97 MG/DL (74-106); POTASSIUM SERUM 4.6 MMOL/L (3.5-5.1); SODIUM LEVEL 140 MMOL/L (136-145); TOTAL PROTEIN 7.1 G/DL (5.7-8.2); TRIGLYCERIDES LEVEL 65 MG/DL (<150)
== END ==
LOC: M PLALAB 11:29
PROVIDERS: ATTEND Nurse Practitioner Adult Health
DX: I70.209 Unspecified atherosclerosis of native arteries of extremities, unspecified extremity (principal); M19.011 Primary osteoarthritis, right shoulder; R63.4 Abnormal weight loss; E78.2 Mixed hyperlipidemia; K70.30 Alcoholic cirrhosis of liver without ascites

== ENCOUNTER 2023-04-23 09:21 | Emergency (ER) | payer OTHER ==
[~2023-04-23] VITALS: Ht 170.2 cm; Wt 62.5 kg
[2023-04-23 10:04] LABS: BASO % 0.4 % (0.0-1.0); EOS # 0.1 10^3/uL (0.0-0.5); EOS % 1.7 % (0.0-3.0); HEMATOCRIT 45.7 % (42.0-52.0); HEMOGLOBIN 15.9 g/dl (13.5-17.5); LYMPH # 1.6 10^3/uL (1.5-5.0); LYMPH % 23.6 % (24.0-44.0); MEAN CORPUSCULAR HEMOGLOBIN 31.5 pg (27.0-33.0); MEAN CORPUSCULAR HGB CONC 34.8 g/dl (32.0-36.5); MEAN CORPUSCULAR VOLUME 90.7 fl (80.0-96.0); MONO # 0.4 10^3/uL (0.0-0.8); MONO % 5.9 % (2.0-8.0); NEUTROPHILS # 4.7 10^3/uL (1.5-8.5); NEUTROPHILS % 68.1 % (36.0-66.0); PLATELET COUNT, AUTOMATED 141 10^3/uL (150-450); RED BLOOD COUNT 5.04 10^6/uL (4.30-6.10); WHITE BLOOD COUNT 6.9 10^3/uL (4.0-10.0)
[2023-04-23 10:16] LABS: INR 0.99; PROTHROMBIN TIME 12.8 SECONDS (12.5-14.5)
[2023-04-23 10:17] LABS: PARTIAL THROMBOPLASTIN TIME 27.5 SECONDS (24.8-34.2)
[2023-04-23] MEDS ORDERED: ISOVUE-370 76% 100ML VIAL As Ordered ONE (10:21)
[2023-04-23 10:26] LABS: ALBUMIN 4.2 G/DL (3.2-5.2); ALKALINE PHOSPHATASE 84 U/L (46-116); ALT/SGPT 17 U/L (7.0-40); AST/SGOT 22 U/L (<34); BILIRUBIN,DIRECT 0.1 MG/DL (<0.4); BILIRUBIN,TOTAL 0.4 MG/DL (0.3-1.2); BLOOD UREA NITROGEN 23 MG/DL (9-23); CALCIUM LEVEL 9.3 MG/DL (8.3-10.6); CARBON DIOXIDE LEVEL 27 MMOL/L (20-31); CHLORIDE LEVEL 106 MMOL/L (98-107); CREATININE FOR GFR 0.61 MG/DL (0.70-1.30); GLOMERULAR FILTRATION RATE > 60.0 (>49); GLUCOSE, FASTING 103 MG/DL (74-106); POTASSIUM SERUM 3.9 MMOL/L (3.5-5.1); SODIUM LEVEL 138 MMOL/L (136-145); TOTAL PROTEIN 7.4 G/DL (5.7-8.2)
[2023-04-23 11:35] LABS: RSV AMPLIFICATION NEGATIVE (NEGATIVE)
[2023-04-23] MEDS: HEPARIN SOD (PORCINE) 5000UNITS/ML 1ML VIAL/SYRINGE IV ONE (12:03)
[2023-04-23] MEDS: HEPARIN DRIP 25,000 UNITS in IV 1 EA IV SCH (12:07)
[2023-04-23] MEDS: MORPHINE 4 MG/ML 1ML VIAL IV ONE (12:45)
[2023-04-23 12:50] VITALS: BP 135/63; TEMP 97.8; O2SAT 98
== END 2023-04-23 12:49 | disposition short-term general hospital (02) ==
LOC: M ED 09:21
DX: I70.92 Chronic total occlusion of artery of the extremities (principal); I10 Essential (primary) hypertension; I73.9 Peripheral vascular disease, unspecified; F41.9 Anxiety disorder, unspecified; K21.9 Gastro-esophageal reflux disease without esophagitis; K22.70 Barrett's esophagus without dysplasia; B19.20 Unspecified viral hepatitis C without hepatic coma; Z88.0 Allergy status to penicillin; Z79.51 Long term (current) use of inhaled steroids; Z79.899 Other long term (current) drug therapy
CPT/HCPCS: 75635; 80047; 80048; 80076; 85025; 85610; 85730; 87631; 93041; 94760; 96365; 96375; 99285; Q9967

== ENCOUNTER → 2023-05-13 | Outpatient (CLI) | payer OTHER ==
[2023-05-13 16:23] LABS: FERRITIN 48.4 NG/ML (10.5-307.3)
[2023-05-13 16:24] LABS: HEMATOCRIT 32.9 % (42.0-52.0); HEMOGLOBIN 10.6 g/dl (13.5-17.5); MEAN CORPUSCULAR HEMOGLOBIN 30.8 pg (27.0-33.0); MEAN CORPUSCULAR HGB CONC 32.2 g/dl (32.0-36.5); MEAN CORPUSCULAR VOLUME 95.6 fl (80.0-96.0); PLATELET COUNT, AUTOMATED 385 10^3/uL (150-450); RED BLOOD COUNT 3.44 10^6/uL (4.30-6.10); WHITE BLOOD COUNT 6.5 10^3/uL (4.0-10.0)
[2023-05-13 16:46] LABS: ALBUMIN 3.6 G/DL (3.2-5.2); ALKALINE PHOSPHATASE 53 U/L (46-116); ALT/SGPT 15 U/L (7.0-40); AST/SGOT 14 U/L (<34); BILIRUBIN,TOTAL 0.5 MG/DL (0.3-1.2); BLOOD UREA NITROGEN 21 MG/DL (9-23); CALCIUM LEVEL 9.2 MG/DL (8.3-10.6); CARBON DIOXIDE LEVEL 28 MMOL/L (20-31); CHLORIDE LEVEL 106 MMOL/L (98-107); CREATININE FOR GFR 0.59 MG/DL (0.70-1.30); GLOMERULAR FILTRATION RATE > 60.0 (>49); GLUCOSE, FASTING 99 MG/DL (74-106); POTASSIUM SERUM 4.4 MMOL/L (3.5-5.1); SODIUM LEVEL 137 MMOL/L (136-145); TOTAL PROTEIN 6.9 G/DL (5.7-8.2)
== END ==
LOC: M PLALAB 12:29
PROVIDERS: ATTEND Nurse Practitioner Adult Health
DX: I73.9 Peripheral vascular disease, unspecified (principal); K70.30 Alcoholic cirrhosis of liver without ascites

== ENCOUNTER → 2023-09-30 | Outpatient (CLI) | payer OTHER | LOC: M PLAIMG 16:42 | PROVIDERS: ATTEND Nurse Practitioner Adult Health | DX: R09.89 Other specified symptoms and signs involving the circulatory and respiratory systems (principal); J44.9 Chronic obstructive pulmonary disease, unspecified ==

== ENCOUNTER → 2023-11-18 | Outpatient (CLI) | payer OTHER ==
[2023-11-18 15:33] LABS: HEMATOCRIT 43.9 % (42.0-52.0); HEMOGLOBIN 14.8 g/dl (13.5-17.5); MEAN CORPUSCULAR HEMOGLOBIN 29.4 pg (27.0-33.0); MEAN CORPUSCULAR HGB CONC 33.7 g/dl (32.0-36.5); MEAN CORPUSCULAR VOLUME 87.1 fl (80.0-96.0); PLATELET COUNT, AUTOMATED 174 10^3/uL (150-450); RED BLOOD COUNT 5.04 10^6/uL (4.30-6.10); WHITE BLOOD COUNT 5.2 10^3/uL (4.0-10.0)
[2023-11-18 15:57] LABS: ALBUMIN 4.2 G/DL (3.2-5.2); ALKALINE PHOSPHATASE 74 U/L (46-116); ALT/SGPT 12 U/L (7.0-40); AST/SGOT 18 U/L (<34); BILIRUBIN,TOTAL 0.4 MG/DL (0.3-1.2); BLOOD UREA NITROGEN 23 MG/DL (9-23); CALCIUM LEVEL 10.5 MG/DL (8.3-10.6); CARBON DIOXIDE LEVEL 28 MMOL/L (20-31); CHLORIDE LEVEL 106 MMOL/L (98-107); CREATININE FOR GFR 0.72 MG/DL (0.70-1.30); GLOMERULAR FILTRATION RATE > 60.0 (>49); GLUCOSE, FASTING 92 MG/DL (74-106); POTASSIUM SERUM 4.4 MMOL/L (3.5-5.1); SODIUM LEVEL 140 MMOL/L (136-145); TOTAL PROTEIN 7.8 G/DL (5.7-8.2)
[2023-11-18 15:58] LABS: FERRITIN 31.5 NG/ML (10.5-307.3)
[2023-11-18 15:59] LABS: HEMOGLOBIN A1c 5.3 % (4.0-6.0)
== END ==
LOC: M PLALAB 12:55
PROVIDERS: ATTEND Nurse Practitioner Adult Health
DX: I73.9 Peripheral vascular disease, unspecified (principal); I70.209 Unspecified atherosclerosis of native arteries of extremities, unspecified extremity; R63.4 Abnormal weight loss; Z79.899 Other long term (current) drug therapy

== ENCOUNTER → 2023-11-19 | Outpatient (CLI) | payer OTHER | LOC: M RAD 09:37 | PROVIDERS: ATTEND Surgery | DX: I73.9 Peripheral vascular disease, unspecified (principal) ==

== ENCOUNTER → 2024-12-14 | Outpatient (CLI) | payer OTHER ==
[~2024-12-14] MED LIST changes: -ADV250INH INH; +ADVA1AER9 INH
== END ==
LOC: M RAD 14:43
PROVIDERS: ATTEND Nurse Practitioner Adult Health
DX: Z12.2 Encounter for screening for malignant neoplasm of respiratory organs (principal); Z87.891 Personal history of nicotine dependence